=== PATIENT | male | born 2005 | race Caucasian/White ===

== ENCOUNTER 2023-10-24 06:51 | Day surgery (SDC) | payer OTHER, SELFPAY ==
[2023-10-24] VITALS (16 sets, daily range): BP systolic 91–151; BP diastolic 39–102; PULSE 45–88; RESP 12–18; TEMP 36.4–37; O2SAT 94–100; BMI 23.7
[2023-10-24] MEDS: LACTATED RINGERS 1000 ML 1,000 ML 100 ML IV (07:20)
--- NOTE | 2023-10-24 07:20 | W.PM.H&PU ---
History & Physical Update History & Physical Update H&P Reviewed and patient assessed: No changes noted
[2023-10-24] MEDS: SODIUM CHLORIDE 0.9 % (FLUSH) 10 ML SYRINGE IVF (07:21)
[2023-10-24] MEDS: LACTATED RINGERS 1000 ML 1,000 ML 50 ML IV (09:24)
[2023-10-24] MEDS: CEFAZOLIN 2 GM in 0.9 % SODIUM CHLORIDE Mini-bag 100 ML IVPB (09:44)
[2023-10-24] MEDS: ROPIVACAINE 0.5% 30 ML 150 MG INJECTION (10:20)
--- NOTE | 2023-10-24 10:22 | PM.ORPRC ---
Procedure Note Date of procedure: 10/24/23 Procedure: PREOPERATIVE DIAGNOSIS: 1. Right knee medial meniscus longitudinal red-red zone posterior horn POSTOPERATIVE DIAGNOSIS: 1. Right knee medial meniscus longitudinal red-red zone posterior horn PROCEDURE: 1. Right knee arthroscopic medial meniscus all-inside repair 2. Right knee arthroscopic microfracture intercondylar notch SURGEON: Dg Pham M.D. FOOD SERVICE AMBASSADOR: Eduardo EVERETT. Of note, a skilled program services assistant was critical for this case to aid in patient positioning, knee manipulation, skill to manipulate arthroscopic instruments and camera, instrument exchange and suture passage/retrieval, and closure. ANESTHESIA: Spinal EBL: 5 mL TOURNIQUET: 35 minutes at 250 torr COMPLICATIONS: None evident IMPLANTS: [employer] FiberTak (x2) INDICATIONS: The patient is a pleasant 18-year-old male who has experienced right knee pain following an injury to the right knee recently. MRI was obtained and confirmed a posterior horn medial meniscus tear. Given the patient's youthful age, desired remain physically active with sporting activities, and the displaced tissue, surgery is recommended to stabilize the meniscus. FINDINGS: Healthy chondral surfaces in all 3 compartments. Intact lateral meniscus. ACL and PCL were intact robust. The medial meniscus initially appeared to be relatively healthy, but upon probing indeed showed a posterior horn longitudinal tear approximately 15-17 mm in length. It indeed displaced into the medial compartment more than healthy meniscus otherwise would. The posterior root itself was intact. The tear extended from approximately 7 mm from the root approaching the posterior horn/midbody junction. DESCRIPTION OF PROCEDURE: After a thorough discussion of risks, benefits, and alternatives, the patient was brought to the operating room and placed upon the operating table. Induction of anesthesia was undertaken as previously noted. 2 g IV Ancef was administered within 1 hr of incision preoperatively. Appropriate time-out was performed identifying proper patient, site, and procedure. The right lower extremity was prepped and draped in the appropriate sterile fashion using ChloraPrep. The limb was exsanguinated and tourniquet inflated. Anterolateral and anteromedial portals were established with an 11 blade, and a diagnostic arthroscopy was performed. This identified the findings as noted above. Following the diagnostic arthroscopy, the meniscal tear edges were debrided with a rasp like device. At this stage, the meniscus was probed further and felt that the quality of tissue and the fact that it is in the red-red zone was worthy to be repaired in this young individual. As was relatively stable, a decision was made for FiberTak all inside meniscus repair technique. 2 separate FiberTak devices were utilized in a horizontal/minimal oblique fashion. Excellent reapproximation of the tissue & stability of the tear was achieved. At this stage, the Arthrex power pick device was utilized for microfracture of the intercondylar notch to help create bleeding bone to aid in meniscus repair success. The bone was debrided/backward with shaver device. Instruments were removed, excess fluid was drained, and closure performed with 4-0 Monocryl for subcuticular closure and portal closure. with Steri-Strips. Dressings were applied, the tourniquet deflated, and the patient was awoken from anesthesia and transferred to the PACU in stable condition. A skilled program services assistant was critical for this case to aid in patient positioning, knee manipulation, skill to manipulate arthroscopic instruments and camera, instrument exchange, and closure. PLAN: 1. Toe-touch weightbear operative lower extremity. Crutch / walker ambulation assistance PRN. 2. Ice, acetominophen and/or ibuprofen, and oxycodone for pain as needed. 3. Knee range of motion and quad sets/straight leg raise regularly 4. Follow up with PA visit in 1-2 weeks for a wound check. Initiate PT for A/P ROM and e-stim/open chain quad exercises.
--- NOTE | 2023-10-24 10:32 | W.ANESCHARGE ---
Anesthesia Charges Start Date/Time Anesthesia Start Date: 10/24/23 Anesthesia Start Time: 09:36 Stop Date/Time Anesthesia Stop Date: 10/24/23 Anesthesia Stop Time: 10:32
[2023-10-24] MEDS: fentaNYL 100 MCG/2 ML inj 50 MCG IVP (10:53)
[2023-10-24] MEDS: ACETAMINOPHEN 325 MG TABLET PO (11:30)
[2023-10-24] MEDS: IBUPROFEN 200 MG TABLET 400 MG PO (11:38)
== END 2023-10-24 12:46 | disposition home or self-care (01) ==
PROVIDERS: Visit Provider Orthopaedic Surgery Sports Medicine
PROC: (CPT 29870; principal; 2023-10-24 09:30)
DX: S83.241A Other tear of medial meniscus, current injury, right knee, initial encounter (principal)
CPT/HCPCS: 29881; 29879; 01400; A9270; C1713; J0690; J1100; J2250; J2405; J2704; J2795; J3010; J7120